=== PATIENT | female | born 1985 | race Caucasian/White ===

== ENCOUNTER 2022-06-04 22:03 | Emergency (ER) | payer MEDICAID ==
[~2022-06-04] VITALS: Ht 165.1 cm; Wt 62.0 kg
[2022-06-04 23:10] LABS: CHLORIDE 105 mEq/L (98-107)
[2022-06-04 23:19] LABS: BASOPHILS % 0.3 % (0.0-2.0); EOSINOPHILS % 1.9 % (0.0-5.0); HEMATOCRIT. 30.3 % (36.0-48.0); HEMOGLOBIN. 10.5 g/dL (12.0-16.0); LYMPHOCYTES % 22.5 % (20.0-50.0); MEAN CORPUSCULAR HEMOGLOBIN 32.4 pg (28.0-32.0); MEAN CORPUSCULAR VOLUME 93.5 fL (81.0-99.0); MEAN PLATELET VOLUME 8.5 fl (7.4-10.4); MONOCYTES % 7.3 % (2.0-8.0); PLATELET 370 x1000/uL (130-400); RED BLOOD CELL COUNT 3.24 mill/uL (4.2-5.4); RED CELL DISTRIBUTION WIDTH 13.5 % (11.6-14.6)
[2022-06-04 23:33] LABS: B-HCG QUANTITATIVE 36398 mIU/mL (<3)
[2022-06-05 01:53] LABS: CLARITY URINE CLEAR (CLEAR); COLOR URINE YELLOW (YELLOW); KETONES URINE NEGATIVE (NEGATIVE); LEUKOCYTE ESTERASE URINE 1+ (NEGATIVE); NITRITE URINE NEGATIVE (NEGATIVE); OCCULT BLOOD URINE NEGATIVE (NEGATIVE); PH URINE 6.5 (4.5-8.0); PROTEIN URINE NEGATIVE (NEGATIVE); SPECIFIC GRAVITY URINE 1.018 (1.005-1.030); UROBILINOGEN URINE 0.2 E.U./dL (0.2-1.0)
[2022-06-05] MEDS ORDERED: CEPH500T MT (02:13)
[2022-06-05 02:25] VITALS: BP 102/56
== END 2022-06-05 02:46 | disposition home or self-care (01) ==
LOC: ER 22:03
DX: O23.12 Infections of bladder in pregnancy, second trimester (principal); O26.892 Other specified pregnancy related conditions, second trimester; N30.00 Acute cystitis without hematuria; R05.1 Acute cough; R10.9 Unspecified abdominal pain; Z3A.15 15 weeks gestation of pregnancy
CPT/HCPCS: 36415; 71045; 76805; 76817; 80053; 81003; 84702; 85025; 99284; Z7610; 99285